=== PATIENT | male | born 1975 | race Caucasian/White ===

== ENCOUNTER 2021-02-19 11:51 | Outpatient (CLI) | payer OTHER, SELFPAY ==
--- NOTE | ~2021-02-19 | XR_ITS ---
XR lumbar spine 2-3V DATE: 02/19/2021 12:16 INDICATION: Acute low back pain TECHNIQUE: AP, lateral, coned lateral lumbosacral views COMPARISON: None FINDINGS: Normal alignment. No fracture or bone destruction. The included lower thoracic and lumbar p edicles are intact. Lumbar and lumbosacral interspaces are well preserved. The sacroiliac joints appe ar normal. IMPRESSION: Normal examination Reviewed, dictated and finalized at location A. IMPRESSION: Normal examination
== END 2021-02-19 11:52 | disposition home or self-care (01) ==
DX: M54.5 Low back pain (principal)
CPT/HCPCS: 72100

== ENCOUNTER 2021-02-21 13:20 | Emergency (ER) | payer OTHER, SELFPAY ==
--- NOTE | ~2021-02-21 | CT_ITS ---
EXAMINATION: CT abd pelvis lumbar wo con DATE: 02/21/2021 15:13 INDICATION: Left flank pain TECHNIQUE: Computed tomography (CT) of the abdomen, pelvis and lumbar spine was performed without int ravenous contrast. Automated exposure control and iterative reconstruction technique were employed. T camilo dose-length product was 1313.77 mGy-cm. COMPARISON: 01/28/2018 FINDINGS: Abdomen and pelvis: Lung bases are clear. Heart size is normal. No pericardial or pleural effusion. Liver, gallbladder, s pleen and a couple adjacent small splenules, pancreas and bilateral adrenal glands are normal. 1.9 cm left renal lesion which is of slightly higher attenuation than the surrounding renal parenchyma but which corresponds in size and location to a prior fluid attenuation cyst suggesting interval hemorrha gic transformation or accumulation of proteinaceous fluid. 1 mm nonobstructing stone at the lower alvarez e of the right kidney. Scattered colonic diverticulosis without adjacent inflammatory change to sugge st diverticulitis. Small bowel and appendix are normal. Bladder is normal. No free intraperitoneal ga s or fluid. No pathologically enlarged abdominal or pelvic lymphadenopathy. Lumbar spine: Alignment is normal. Vertebral body and disc heights are normal. Multilevel minimal to mild lumbar fa cet osteoarthritis. Mild disc bulges at L3-L4 through L5-S1 resulting in mild central canal stenosis or acute L3-L4 and L4-L5. There is also mild neural foraminal stenosis bilaterally at L3-L4 through L 5-S1. Mild bilateral sacroiliac osteoarthritis. IMPRESSION: 1. No acute intra-abdominal/pelvic process. 2. 1 mm nonobstructing right renal stone. 3. Increased density within a prior 1.9 cm fluid attenuation left renal cyst consistent with interval hemorrhagic transformation or accumulation of proteinaceous fluid. 4. Minimal to mild lumbar spondylosis. No acute osseous abnormality. Reviewed, dictated and finalized at location A. IMPRESSION: 1. No acute intra-abdominal/pelvic process. 2. 1 mm nonobstructing right renal stone. 3. Increased density within a prior 1.9 cm fluid attenuation left renal cyst co nsistent with interval hemorrhagic transformation or accumulation of proteinace ous fluid. 4. Minimal to mild lumbar spondylosis. No acute osseous abnormality.
[2021-02-21 13:27] VITALS: BP 127/102; PULSE 93; RESP 16; TEMP 36.4; O2SAT 100
--- NOTE | 2021-02-21 14:22 | ED.BACK ---
HPI - Back Pain/Injury General Chief Complaint: Back Pain/Injury Stated Complaint: lower back pain Time Seen by Provider: 02/21/21 14:22 History of Present Illness HPI Narrative: Bilateral low back pain for more than one week. Worst on the left. Exacerbated by seated position. Radiates into hips. He saw his PCP and got x-rays and started on treatment for sciatica. Pain has gotten worse. He has had kidney stones in the past and is worried this could be another one. No urinary symptoms. Related Data Allergies Allergy/AdvReac Type Severity Reaction Status Date / Time azithromycin Allergy Unknown Itching Verified 02/21/21 14:35 Sulfa (Sulfonamide Allergy Unknown Unknown Verified 02/21/21 14:35 Antibiotics) Review of Systems Review of Systems: All systems reviewed & are unremarkable except as noted in HPI and below Constitutional: Constitutional: Denies chills and Denies fever(s) ENT: Denies dizziness Cardiovascular: Cardiovascular: Denies chest pain Respiratory: Respiratory: Denies dyspnea Gastrointestinal: Gastrointestinal: Denies abdominal pain Neurologic: Denies numbness and Denies weakness [facility] Family History Family History (Updated 08/27/18 @ 13:21 by DOCTOR UNKNOWN) Father Acute myocardial infarction Hypertension Patient's father is in good health Mother Patient's mother is in good health Diabetes mellitus Sibling Family history of heart disease in male family member before age 55 Patient's sister is Family history of cardiovascular disease, Onset Age: 31 Social History Social History Smoking status: Never smoker Second hand tobacco smoke exposure: No Smoking end date: 07/14/07 Alcohol intake: current Course Vital Signs Vital signs: Vital Signs Temperature 36.4 C 02/21/21 13:27 Pulse Rate 93 02/21/21 13:27 Respiratory Rate 16 02/21/21 13:27 Blood Pressure 127/102 H 02/21/21 13:27 Pulse Oximetry 100 02/21/21 13:27 Temperature 36.4 C 02/21/21 14:29 Pulse Rate 93 02/21/21 14:29 Respiratory Rate 16 02/21/21 14:29 Blood Pressure 130/98 H 02/21/21 14:29 Pulse Oximetry 99 02/21/21 14:29 MDM - Back Pain/Injury MDM Narrative Medical decision making narrative: No stone or other acute finding to explain his pain. Imaging Data Radiologist's impression: ITS Impressions Miscellaneous CT Procedure 02/21/21 15:19 IMPRESSION: 1. No acute intra-abdominal/pelvic process. 2. 1 mm nonobstructing right renal stone. 3. Increased density within a prior 1.9 cm fluid attenuation left renal cyst consistent with interval hemorrhagic transformation or accumulation of proteinaceous fluid. 4. Minimal to mild lumbar spondylosis. No acute osseous abnormality. Discharge Plan Discharge Clinical Impression: Low back pain Qualifiers: Chronicity: acute Back pain laterality: bilateral Sciatica presence: without sciatica Qualified Code(s): M54.5 - Low back pain Patient Disposition: Home, Self-Care Condition: Stable Instructions: Acute Low Back Pain (ED) Prescriptions: New diazepam [Valium] 5 mg tablet 5 mg PO BID PRN (Reason: muscle spasm) Qty: 10 RF: 0 No Action rosuvastatin 10 mg tablet 10 mg PO DAILY Qty: 90 RF: 0 Follow-up/Referrals: PHYSICIAN NOT ON STAFF,NONSTAFF [Primary Care Provider] -
[2021-02-21 14:29] VITALS: BP 130/98; PULSE 93; RESP 16; TEMP 36.4; O2SAT 99
== END 2021-02-21 17:13 | disposition home or self-care (01) ==
PROVIDERS: Emergency Provider Emergency Medicine
DX: M54.5 Low back pain (principal); N20.0 Calculus of kidney; N28.1 Cyst of kidney, acquired; M47.816 Spondylosis without myelopathy or radiculopathy, lumbar region
CPT/HCPCS: 72131; 74176; 99284